=== PATIENT | female | born 1980 | race Caucasian/White ===

== ENCOUNTER 2019-04-09 11:45 | Outpatient (CLI) | payer MEDICAID ==
[2019-04-09 17:19] LABS: BASOPHILS # (AUTO) 0.1 10^3/uL (0.0-0.1); BASOPHILS % (AUTO) 0.6 %; EOSINOPHILS # (AUTO) 0.1 10^3/uL (0.0-0.7); EOSINOPHILS % (AUTO) 1.3 %; HGB - HEMOGLOBIN 14.9 g/dL (12.0-16.0); LYMPHOCYTES # (AUTO) 3.8 10^3/uL (1.5-3.5); LYMPHOCYTES % (AUTO) 34.4 %; MEAN CORPUSCULAR HEMOGLOBIN 27.9 pg (27.0-31.0); MEAN CORPUSCULAR HGB CONC 32.5 g/dL (32.0-36.0); MEAN CORPUSCULAR VOLUME 85.8 fL (81.0-99.0); MEAN PLATELET VOLUME 9.7 fL (7.9-10.8); MONOCYTES # (AUTO) 0.6 10^3/uL (0.0-1.0); MONOCYTES % (AUTO) 5.1 %; NEUTROPHILS # (AUTO) 6.3 10^3/uL (1.5-6.6); PLT - PLATELET COUNT 375 10^3/uL (130-450); RED BLOOD COUNT 5.35 10^6/uL (4.20-5.40); RED CELL DISTRIBUTION WIDTH 13.2 % (12.0-15.0); WHITE BLOOD COUNT 10.9 x10^3/uL (4.8-10.8)
[2019-04-09 18:09] LABS: ALBUMIN 4.6 g/dL (3.2-5.5); ALBUMIN/GLOBULIN RATIO 1.3 (1.0-2.2); ALKALINE PHOSPHATASE 82 IU/L (42-121); ALT ALANINE AMINOTRANSFERASE 26 IU/L (10-60); AST ASPARTATE AMINOTRANSFERASE 19 IU/L (10-42); BILIRUBIN,TOTAL 1.2 mg/dL (0.2-1.0); BUN - BLOOD UREA NITROGEN 10 mg/dL (6-20); CALCIUM 9.8 mg/dL (8.5-10.3); CARBON DIOXIDE - CO2 25 mmol/L (21-32); CHLORIDE 104 mmol/L (101-111); CHOL/HDL RATIO 7.5 (<4.4); CHOLESTEROL 298 mg/dL; CREATININE 0.8 mg/dL (0.4-1.0); GFR - MDRD 79 (>89); GLUCOSE 98 mg/dL (70-100); HDL CHOLESTEROL 40 mg/dL; LDL CHOLESTEROL,CALCULATED 227 mg/dL; LDL/HDL RATIO 5.7 (<4.4); SODIUM 138 mmol/L (135-145); TOTAL PROTEIN 8.1 g/dL (6.7-8.2); VLDL CHOLESTEROL 31 mg/dL
== END 2019-04-09 11:46 | disposition home or self-care (01) ==
LOC: LAB.S 11:45
PROVIDERS: ATTEND Registered Nurse
DX: Z86.69 Personal history of other diseases of the nervous system and sense organs (principal); E66.01 Morbid (severe) obesity due to excess calories; J30.2 Other seasonal allergic rhinitis; F32.9 Major depressive disorder, single episode, unspecified; F41.9 Anxiety disorder, unspecified; G89.29 Other chronic pain
CPT/HCPCS: 36415; 80053; 80061; 83721; 84443; 85025

== ENCOUNTER 2020-04-18 12:21 | Outpatient (CLI) | payer MEDICAID ==
[2020-04-18 16:00] LABS: BASOPHILS # (AUTO) 0.1 10^3/uL (0.0-0.1); BASOPHILS % (AUTO) 0.5 %; EOSINOPHILS # (AUTO) 0.1 10^3/uL (0.0-0.7); EOSINOPHILS % (AUTO) 0.8 %; HGB - HEMOGLOBIN 14.6 g/dL (12.0-16.0); LYMPHOCYTES # (AUTO) 3.6 10^3/uL (1.5-3.5); LYMPHOCYTES % (AUTO) 26.6 %; MEAN CORPUSCULAR HEMOGLOBIN 28.5 pg (27.0-31.0); MEAN CORPUSCULAR VOLUME 86.5 fL (81.0-99.0); MEAN PLATELET VOLUME 9.6 fL (7.9-10.8); MONOCYTES # (AUTO) 0.7 10^3/uL (0.0-1.0); NEUTROPHILS # (AUTO) 9.1 10^3/uL (1.5-6.6); NEUTROPHILS % (AUTO) 66.7 %; PLT - PLATELET COUNT 347 10^3/uL (130-450); RED BLOOD COUNT 5.12 10^6/uL (4.20-5.40); RED CELL DISTRIBUTION WIDTH 13.2 % (12.0-15.0); WHITE BLOOD COUNT 13.6 x10^3/uL (4.8-10.8)
[2020-04-18 16:19] LABS: ALBUMIN 4.4 g/dL (3.2-5.5); ALBUMIN/GLOBULIN RATIO 1.3 (1.0-2.2); ALKALINE PHOSPHATASE 88 IU/L (42-121); ALT ALANINE AMINOTRANSFERASE 13 IU/L (10-60); AST ASPARTATE AMINOTRANSFERASE 11 IU/L (10-42); BILIRUBIN,TOTAL 0.9 mg/dL (0.2-1.0); BUN - BLOOD UREA NITROGEN 11 mg/dL (6-20); CALCIUM 9.8 mg/dL (8.5-10.3); CARBON DIOXIDE - CO2 22 mmol/L (21-32); CHLORIDE 107 mmol/L (101-111); CHOL/HDL RATIO 5.9 (<4.4); CHOLESTEROL 240 mg/dL; CREATININE 0.9 mg/dL (0.4-1.0); GLUCOSE 98 mg/dL (70-100); HDL CHOLESTEROL 41 mg/dL; LDL CHOLESTEROL,CALCULATED 159 mg/dL; LDL/HDL RATIO 3.9 (<4.4); SODIUM 137 mmol/L (135-145); TOTAL PROTEIN 7.7 g/dL (6.7-8.2); VLDL CHOLESTEROL 40 mg/dL
== END 2020-04-18 12:22 | disposition home or self-care (01) ==
LOC: LAB.S 12:21
PROVIDERS: ATTEND Physician Assistant
DX: E78.5 Hyperlipidemia, unspecified (principal); F41.8 Other specified anxiety disorders; I10 Essential (primary) hypertension; F41.9 Anxiety disorder, unspecified; F32.9 Major depressive disorder, single episode, unspecified; Z86.69 Personal history of other diseases of the nervous system and sense organs
CPT/HCPCS: 36415; 80053; 80061; 83721; 84443; 85025

== ENCOUNTER 2020-05-27 15:24 | Outpatient (CLI) | payer MEDICAID ==
[2020-05-27 20:07] LABS: BASOPHILS # (AUTO) 0.1 10^3/uL (0.0-0.1); BASOPHILS % (AUTO) 0.4 %; EOSINOPHILS # (AUTO) 0.1 10^3/uL (0.0-0.7); EOSINOPHILS % (AUTO) 0.6 %; HGB - HEMOGLOBIN 14.2 g/dL (12.0-16.0); LYMPHOCYTES # (AUTO) 2.4 10^3/uL (1.5-3.5); LYMPHOCYTES % (AUTO) 19.8 %; MEAN CORPUSCULAR HEMOGLOBIN 28.7 pg (27.0-31.0); MEAN CORPUSCULAR HGB CONC 32.7 g/dL (32.0-36.0); MEAN CORPUSCULAR VOLUME 87.9 fL (81.0-99.0); MEAN PLATELET VOLUME 9.7 fL (7.9-10.8); MONOCYTES # (AUTO) 0.4 10^3/uL (0.0-1.0); MONOCYTES % (AUTO) 3.4 %; NEUTROPHILS % (AUTO) 75.4 %; PLT - PLATELET COUNT 354 10^3/uL (130-450); RED BLOOD COUNT 4.94 10^6/uL (4.20-5.40); RED CELL DISTRIBUTION WIDTH 13.2 % (12.0-15.0)
[2020-05-27 20:35] LABS: RHEUMATOID FACTOR NEGATIVE (Negative)
[2020-05-31 11:51] LABS: ANA SCREEN NEGATIVE (NEGATIVE); DNA (DS) ANTIBODY <1 IU/mL
[2020-05-31 19:47] LABS: CYCLIC CITRULL PEPTIDE CCP IGG <16 UNITS
== END 2020-05-27 15:25 | disposition home or self-care (01) ==
LOC: LAB.S 15:24
PROVIDERS: ATTEND Physician Assistant
DX: R79.9 Abnormal finding of blood chemistry, unspecified (principal); M25.50 Pain in unspecified joint; E66.01 Morbid (severe) obesity due to excess calories; G89.29 Other chronic pain
CPT/HCPCS: 36415; 85025; 85651; 86038; 86140; 86200; 86225; 86430

== ENCOUNTER 2020-06-02 12:48 | Outpatient (CLI) | payer MEDICAID ==
--- NOTE | 2020-06-02 16:14 | XRAY Report ---
PROCEDURE: Spine Entire AP/LAT INDICATIONS: BACK PAIN/NECK PAIN TECHNIQUE: 2 view(s) of the cervical, thoracic and lumbar acquired. COMPARISON: None FINDINGS: Bones: No fractures or dislocations. No suspicious bony lesions. There is overall straightening of normal cervical curvature. 12 pairs of ribs are noted within the thoracic spine. There is moderate t o severe disc space narrowing at L4-5, as well as moderate L5-S1. Small nonbridging anterior osteophy rene are noted L4 and L5. Pars defect is noted at L5. No visualized anterior or retrolisthesis at L5-S 1. Moderate to severe foraminal narrowing is noted L4-5 and L5-S1. Soft tissues: No suspicious soft tissue calcifications. IMPRESSION: 1. Pars defect at L5. 2. Moderate to severe disc and foraminal narrowing at L4-5, L5-S1. Reviewed by: Ashley Baum MD on 06/02/2020 4:13 PM PST Approved by: Ashley Baum MD on 06/02/2020 4:13 PM PST Station ID: [id number]
== END 2020-06-02 12:49 | disposition home or self-care (01) ==
LOC: DI.S 12:48
PROVIDERS: ATTEND Physician Assistant
DX: M54.2 Cervicalgia (principal); M54.6 Pain in thoracic spine; M48.07 Spinal stenosis, lumbosacral region; M25.50 Pain in unspecified joint; Z90.89 Acquired absence of other organs

== ENCOUNTER 2021-01-12 07:17 | Emergency (ER) | payer MEDICAID ==
[2021-01-12 07:26] VITALS: BP 138/87
--- NOTE | 2021-01-12 07:40 | ED Physician Documentation ---
PD HPI ABD PAIN - Stated complaint Stated Complaint: N/V - Chief complaint Chief Complaint: Abd Pain - History obtained from History obtained from: Patient - Additional information Additional information: 40-year-old woman with history of fibromyalgia, cholecystectomy, appendectomy and hysterectomy presents concern for recurrence of H. pylori. She had H. pylori a few years ago and was treated. Symptoms of gnawing epigastric pain, nausea and diarrhea recurred about a week ago. The pain is nonradiating. It is worse about an hour after eating. Slight relief with antacids. Review of Systems Ten Systems: 10 systems reviewed and negative Constitutional: reports: Reviewed and negative Throat: reports: Reviewed and negative Cardiac: reports: Reviewed and negative Respiratory: reports: Reviewed and negative PD PAST MEDICAL HISTORY - Present Medications Home Medications: Ambulatory Orders Medication Instructions Recorded Confirmed Metoclopramide [Reglan] 10 mg PO Q6H PRN #20 tablet 01/12/21 Omeprazole 40 mg PO BID #28 cap 01/12/21 - Allergies Allergies/Adverse Reactions: Allergies Allergy/AdvReac Type Severity Reaction Status Date / Time gabapentin Allergy Respiratory Verified 01/12/21 07:27 latex Allergy Hives Verified 01/12/21 07:27 pregabalin [From Lyrica] Allergy Hives Verified 01/12/21 07:27 PD ED PE NORMAL - Vitals Vital signs reviewed: Yes - General General: Alert and oriented X 3, No acute distress - HEENT HEENT: PERRL, EOMI - Neck Neck: Supple, no meningeal sign, No bony TTP - Abdomen Abdomen: Normal bowel sounds, Soft, Non tender - Extremities Extremities: No edema, No calf tenderness / cord - Neuro Neuro: Alert and oriented X 3, Normal speech Results - Vitals Vitals: Vital Signs - 24 hr 01/12/21 07:21 Temperature 36.9 C Heart Rate 95 Respiratory 15 Rate Blood Pressure 138/87 H O2 Saturation 100 Oxygen O2 Source Room air - Labs Labs: Laboratory Tests 01/12/21 01/12/21 01/12/21 07:49 07:49 08:35 WBC 13.4 H RBC 5.29 Hgb 15.4 Hct 45.6 MCV 86.2 MCH 29.1 MCHC 33.8 RDW 12.8 Plt Count 364 MPV 9.1 Neut # (Auto) 8.7 H Lymph # (Auto) 3.5 [place] # (Auto) 0.7 Eos # (Auto) 0.4 Baso # (Auto) 0.1 Absolute Nucleated RBC 0.00 Nucleated RBC % 0.0 Sodium 138 Potassium 4.2 Chloride 105 Carbon Dioxide 23 Anion Gap 10.0 BUN 15 Creatinine 1.0 Estimated GFR (MDRD) 61 L Glucose 91 Calcium 9.5 Total Bilirubin 1.4 H AST 14 ALT 18 Alkaline Phosphatase 82 Total Protein 8.6 H Albumin 4.7 Globulin 3.9 Albumin/Globulin Ratio 1.2 Lipase 48 Urine Color Urine Clarity Urine pH Ur Specific [place] Urine Protein Urine Glucose (UA) Urine Ketones Urine Occult Blood Urine Nitrite Urine Bilirubin Urine Urobilinogen Ur Leukocyte Esterase Ur Microscopic Review Urine Culture Comments Stool H. pylori Ag NEGATIVE 01/12/21 08:35 WBC RBC Hgb Hct MCV MCH MCHC RDW Plt Count MPV Neut # (Auto) Lymph # (Auto) [place] # (Auto) Eos # (Auto) Baso # (Auto) Absolute Nucleated RBC Nucleated RBC % Sodium Potassium Chloride Carbon Dioxide Anion Gap BUN Creatinine Estimated GFR (MDRD) Glucose Calcium Total Bilirubin AST ALT Alkaline Phosphatase Total Protein Albumin Globulin Albumin/Globulin Ratio Lipase Urine Color YELLOW Urine Clarity CLEAR Urine pH 5.5 Ur Specific [place] >=1.030 H Urine Protein NEGATIVE Urine Glucose (UA) NEGATIVE Urine Ketones NEGATIVE Urine Occult Blood NEGATIVE Urine Nitrite NEGATIVE Urine Bilirubin NEGATIVE Urine Urobilinogen 0.2 (NORMAL) Ur Leukocyte Esterase NEGATIVE Ur Microscopic Review NOT INDICATED Urine Culture Comments NOT INDICATED Stool H. pylori Ag PD MEDICAL DECISION MAKING - ED course ED course: 40-year-old woman with dyspepsia after starting Victoza. Has a history of H. pylori but labs negative for same here. Benign exam. We will start a PPI and Reglan pending follow-up with PCP. Departure - Departure Disposition: 01 Home, Self Care Clinical Impression: Gastritis Condition: Good Record reviewed to determine appropriate education?: Yes Instructions: ED PUD Vs Gastritis Prescriptions: Omeprazole 40 mg PO BID #28 cap Metoclopramide [Reglan] 10 mg PO Q6H PRN #20 tablet PRN Reason: nausea or headache Comments: Prescriptions sent electronically to [facility]. Call your doctor to arrange a follow-up appointment, make the next available appointment. In the interim, return anytime if worse or if new symptoms d evelop.
[2021-01-12 08:15] LABS: BASOPHILS # (AUTO) 0.1 10^3/uL (0.0-0.1); BASOPHILS % (AUTO) 0.7 %; EOSINOPHILS # (AUTO) 0.4 10^3/uL (0.0-0.7); EOSINOPHILS % (AUTO) 2.9 %; HCT - HEMATOCRIT 45.6 % (37.0-47.0); HGB - HEMOGLOBIN 15.4 g/dL (12.0-16.0); LYMPHOCYTES # (AUTO) 3.5 10^3/uL (1.5-3.5); LYMPHOCYTES % (AUTO) 25.8 %; MEAN CORPUSCULAR HEMOGLOBIN 29.1 pg (27.0-31.0); MEAN CORPUSCULAR HGB CONC 33.8 g/dL (32.0-36.0); MEAN CORPUSCULAR VOLUME 86.2 fL (81.0-99.0); MEAN PLATELET VOLUME 9.1 fL (7.9-10.8); MONOCYTES # (AUTO) 0.7 10^3/uL (0.0-1.0); MONOCYTES % (AUTO) 5.4 %; NEUTROPHILS # (AUTO) 8.7 10^3/uL (1.5-6.6); NEUTROPHILS % (AUTO) 64.8 %; PLT - PLATELET COUNT 364 10^3/uL (130-450); RED BLOOD COUNT 5.29 10^6/uL (4.20-5.40); RED CELL DISTRIBUTION WIDTH 12.8 % (12.0-15.0); WHITE BLOOD COUNT 13.4 x10^3/uL (4.8-10.8)
[2021-01-12 08:29] LABS: ALBUMIN 4.7 g/dL (3.2-5.5); ALBUMIN/GLOBULIN RATIO 1.2 (1.0-2.2); BILIRUBIN,TOTAL 1.4 mg/dL (0.2-1.0); CALCIUM 9.5 mg/dL (8.5-10.3); POTASSIUM 4.2 mmol/L (3.5-5.0); TOTAL PROTEIN 8.6 g/dL (6.7-8.2)
[2021-01-12 08:54] LABS: BILIRUBIN,URINE NEGATIVE (NEGATIVE); GLUCOSE, URINE (UA) NEGATIVE (NEGATIVE); KETONES,URINE (UA) NEGATIVE (NEGATIVE); LEUKOCYTE ESTERASE, URINE NEGATIVE (NEGATIVE); NITRITE,URINE NEGATIVE (NEGATIVE); OCCULT BLOOD,URINE NEGATIVE (NEGATIVE); PH,URINE 5.5 PH (5.0-7.5); PROTEIN,URINE NEGATIVE (NEGATIVE); UROBILINOGEN,URINE 0.2 (NORMAL) E.U./dL (NORMAL)
[2021-01-12 08:58] LABS: CLARITY,URINE CLEAR (CLEAR)
[2021-01-12 09:04] LABS: H. PYLORIS ANTIGEN STL NEGATIVE (Negative)
== END 2021-01-12 10:01 | disposition home or self-care (01) ==
LOC: ED 07:17
DX: K29.70 Gastritis, unspecified, without bleeding (principal)
CPT/HCPCS: 36415; 80053; 81001; 81003; 83690; 85025; 87086; 87338; 99283; 99284

== ENCOUNTER 2021-07-06 10:04 | Emergency (ER) | payer MEDICAID ==
[2021-07-06 10:11] VITALS: BP 150/102
--- NOTE | 2021-07-06 10:24 | ED Physician Documentation ---
PD HPI WOUND RECHECK - Stated complaint Stated Complaint: ABD STICH REMOVAL - Chief complaint Chief Complaint: Wound - Histroy obtained from History obtained from: Patient - History of Present Illness Location: Abdomen Timing - onset: How many days ago (9) Associated symptoms: No: Fever, Redness, Swelling Recently seen: Surgery (gastric sleeve procedure 9 days ago and has sutures that need removing. Surgery office had told her they could be done at Walk In or ER, and did not need to return there.) Review of Systems Constitutional: denies: Fever, Chills Nose: denies: Rhinorrhea / runny nose, Congestion Throat: denies: Sore throat Cardiac: denies: Chest pain / pressure, Palpitations Respiratory: denies: Dyspnea, Cough GI: denies: Vomiting, Diarrhea Musculoskeletal: denies: Neck pain, Back pain Neurologic: denies: Generalized weakness, Focal weakness, Numbness Psychiatric: denies: Depressed PD PAST MEDICAL HISTORY - Past Medical History Past Medical History: Yes Cardiovascular: None Respiratory: None Neuro: None Endocrine/Autoimmune: None GI: Ulcers HAND RIVETER: None : None HEENT: None Psych: None Musculoskeletal: None Derm: None - Past Surgical History Past Surgical History: No /HAND RIVETER: Hysterectomy - Present Medications Home Medications: Ambulatory Orders Medication Instructions Recorded Confirmed Metoclopramide [Reglan] 10 mg PO Q6H PRN #20 tablet 01/12/21 Omeprazole 40 mg PO BID #28 cap 01/12/21 - Allergies Allergies/Adverse Reactions: Allergies Allergy/AdvReac Type Severity Reaction Status Date / Time Beef Containing Products Allergy Hives Verified 07/06/21 10:11 gabapentin Allergy Respiratory Verified 07/06/21 10:11 latex Allergy Hives Verified 07/06/21 10:11 pregabalin [From Lyrica] Allergy Hives Verified 07/06/21 10:11 - Social History Does the pt smoke?: No Smoking Status: Never smoker Does the pt drink ETOH?: No Does the pt have substance abuse?: No - Immunizations Immunizations are current?: Yes - POLST Patient has POLST: No PD ED PE NORMAL - Vitals Vital signs reviewed: Yes - General General: Alert and oriented X 3, No acute distress, Well developed/nourished - Cardiac Cardiac: RRR, No murmur - Respiratory Respiratory: Clear bilaterally - Abdomen Abdomen: Soft, Non tender, No organomegaly, Other (several scope incision sites with 1-2 sutures each spot. No signs of infection. No tenderness.) Results - Vitals Vitals: Vital Signs - 24 hr 07/06/21 10:09 Temperature 36.2 C L Heart Rate 80 Respiratory 16 Rate Blood Pressure 150/102 H O2 Saturation 97 Oxygen O2 Source Room air Procedures - Suture/staple Removal (location) abdomen Suture/staple removal: # sutures (all sutures removed by nursing staff.), No complications PD MEDICAL DECISION MAKING - ED course Complexity details: considered differential, d/w patient Departure - Departure Disposition: 01 Home, Self Care Clinical Impression: Visit for suture removal Condition: Stable Record reviewed to determine appropriate education?: Yes Comments: Continue general wound care. Okay to use ointments. He do not necessarily need to have bandaging on if the tape is irritating. Discharge Date/Time: 07/06/21 11:30
== END 2021-07-06 11:30 | disposition home or self-care (01) ==
LOC: ED 10:04
DX: Z48.02 Encounter for removal of sutures (principal)
CPT/HCPCS: 99281

== ENCOUNTER 2023-07-02 09:16 | Emergency (ER) | payer MEDICAID, OTHER ==
[2023-07-02 09:33] VITALS: O2SAT 100
[2023-07-02 09:56] LABS: BASOPHILS % (AUTO) 0.4 %; EOSINOPHILS # (AUTO) 0.1 10^3/uL (0.0-0.7); EOSINOPHILS % (AUTO) 0.7 %; HCT - HEMATOCRIT 43.6 % (37.0-47.0); HGB - HEMOGLOBIN 15.2 g/dL (12.0-16.0); LYMPHOCYTES # (AUTO) 2.2 10^3/uL (1.5-3.5); LYMPHOCYTES % (AUTO) 20.7 %; MEAN CORPUSCULAR HEMOGLOBIN 29.6 pg (27.0-31.0); MEAN CORPUSCULAR HGB CONC 34.9 g/dL (32.0-36.0); MEAN CORPUSCULAR VOLUME 84.8 fL (81.0-99.0); MEAN PLATELET VOLUME 8.8 fL (7.9-10.8); MONOCYTES # (AUTO) 0.4 10^3/uL (0.0-1.0); MONOCYTES % (AUTO) 3.7 %; NEUTROPHILS # (AUTO) 7.7 10^3/uL (1.5-6.6); NEUTROPHILS % (AUTO) 74.3 %; PLT - PLATELET COUNT 285 10^3/uL (130-450); RED BLOOD COUNT 5.14 10^6/uL (4.20-5.40); RED CELL DISTRIBUTION WIDTH 12.7 % (12.0-15.0); WHITE BLOOD COUNT 10.4 x10^3/uL (4.8-10.8)
[2023-07-02] MEDS: MECLIZINE 12.5 MG TABLET PO STA (09:56)
[2023-07-02] MEDS: ONDANSETRON 4 MG/2 ML VIAL IVP STA (09:56)
--- NOTE | 2023-07-02 09:56 | ED Physician Documentation ---
History of Present Illness - Stated complaint Stated Complaint: WITHDRAWALS - Chief complaint Chief Complaint: General - History obtained from History obtained from: Patient - Additonal information Additional information: Patient is a 43-year-old female with a history of fibromyalgia and anxiety presenting for evaluation feeling that she may have Seroquel withdrawal. Patient states that she has been on 25 mg of Seroquel as needed to use at night to help with sleep and anxiety. She has been using this regularly recently but stopped approximately 10 days ago as she was worried that she would not wake up to feed some new baby goats that they have at home. Yesterday she started feeling dizzy and unsteady with nausea and diarrhea (Estimates 15 episodes, No blood). She does have a history of vertigo. She reports feeling like the room is spinning. She denies headache. No head injury. Does not take a blood thinner. No cough, chest pain or shortness of air. No abdominal pain.She went to see her therapist this morning who recommended she come to the emergency department for evaluation. She denies drug or alcohol use. Review of Systems Constitutional: denies: Fever Cardiac: denies: Chest pain / pressure Respiratory: denies: Dyspnea GI: reports: Nausea, Diarrhea. denies: Abdominal Pain : denies: Dysuria Neurologic: denies: Syncope, Headache PD PAST MEDICAL HISTORY - Past Medical History Past Medical History: Yes Cardiovascular: Hypertension Respiratory: None Neuro: None Endocrine/Autoimmune: None GI: GERD, Ulcers, Other MALTED MILK MIXER: Ovarian cysts : None HEENT: None Psych: Depression, Anxiety Musculoskeletal: Fibromyalgia Derm: None - Past Surgical History Past Surgical History: Yes General: Cholecystectomy, Appendectomy, Gastric surgery Ortho: Arthroscopic surgery /MALTED MILK MIXER: Hysterectomy - Present Medications Home Medications: Ambulatory Orders Medication Instructions Recorded Confirmed Cyclobenzaprine [Flexeril] 10 mg PO TID PRN 07/02/23 07/02/23 HYDROcod/ACETAM 5/325 [[place] 5/325] 1 tablet PO Q6H PRN 07/02/23 07/02/23 Meclizine HCl [Motion Sickness] 25 mg PO Q6H PRN #20 tablet 07/02/23 Metoprolol Succinate [Toprol Xl] 50 mg PO DAILY 07/02/23 07/02/23 Omeprazole 40 mg PO DAILY PRN 07/02/23 07/02/23 Ondansetron Odt [Zofran] 4 mg TL Q6H PRN #10 tablet 07/02/23 QUEtiapine [SEROquel] 25 mg PO QPM 07/02/23 07/02/23 traMADol [Ultram] 50 mg PO BID 07/02/23 07/02/23 - Allergies Allergies/Adverse Reactions: Allergies Allergy/AdvReac Type Severity Reaction Status Date / Time bee venom protein (honey bee) Allergy Anaphylaxis Verified 07/02/23 09:19 Beef Containing Products Allergy Hives Verified 07/02/23 09:19 gabapentin Allergy Respiratory Verified 07/02/23 09:19 latex Allergy Hives Verified 07/02/23 09:19 pregabalin [From Lyrica] Allergy Hives Verified 07/02/23 09:19 - Social History Does the pt smoke?: No Smoking Status: Never smoker Does the pt drink ETOH?: No Does the pt have substance abuse?: No - Immunizations Immunizations are current?: Yes - POLST Patient has POLST: No PD ED PE NORMAL - General General: Alert and oriented X 3, No acute distress, Well developed/nourished - HEENT HEENT: Atraumatic, PERRL, EOMI, Moist mucous membranes, Pharynx benign, Other (+ [place] to left) - Neck Neck: Supple, no meningeal sign - Cardiac Cardiac: RRR, Strong equal pulses - Respiratory Respiratory: No respiratory distress, Clear bilaterally - Abdomen Abdomen: Normal bowel sounds, Soft, Non tender, Non distended - Derm Derm: Warm and dry - Neuro Neuro: Alert and oriented X 3, biomedical engineer 2-12 intact, No motor deficit, No sensory deficit, Normal speech, Other (Normal [id number] bilaterally; Normal unassisted gait) Results - Vitals Vitals: Vital Signs - 24 hr 07/02/23 07/02/23 09:22 10:47 Temperature 36.3 C L Heart Rate 75 68 Respiratory 16 14 Rate Blood Pressure 149/93 H 146/102 H O2 Saturation 100 100 Oxygen O2 Source Room air - EKG (time done) 1006 EKG releavant findings:: EKG personally interpreted by author of this note. Relevant findings are: Rate: Rate (enter#) (Rate 58, normal sinus rhythm, no STEMI, QTc 457) - Labs Labs: Laboratory Tests 07/02/23 07/02/23 09:05 09:05 WBC 10.4 RBC 5.14 Hgb 15.2 Hct 43.6 MCV 84.8 MCH 29.6 MCHC 34.9 RDW 12.7 Plt Count 285 MPV 8.8 Neut # (Auto) 7.7 H Lymph # (Auto) 2.2 [place] # (Auto) 0.4 Eos # (Auto) 0.1 Baso # (Auto) 0.0 Absolute Nucleated RBC 0.00 Nucleated RBC % 0.0 Sodium 138 Potassium 4.0 Chloride 108 Carbon Dioxide 21 Anion Gap 9.0 BUN 8 Creatinine 0.7 Estimated GFR (MDRD) 90 Glucose 104 Calcium 10.0 Total Bilirubin 1.0 AST 10 ALT 8 L Alkaline Phosphatase 74 Total Protein 7.9 Albumin 4.7 Globulin 3.2 Albumin/Globulin Ratio 1.5 Lipase 27 PD Medical Decision Making - ED course Complexity details: reviewed results, d/w patient ED course: Patient is a 43-year-old female presenting for evaluation of feeling dizziness, unsteadiness with some associated nausea. This is worse with turning her head to the left. She was initially concerned that this could be related to stopping her Seroquel 10 days ago. Her Seroquel dosing however is low at only 25 mg nightly. Therefore I am not certain that this could be symptoms of Seroquel withdrawal as her dose is quite low. However her symptoms do suggest vertigo, specifically BPPV.EKG reviewed demonstrates a normal sinus rhythm. No chest pain to suggest ACS. Normal neuroexam including normal gait and [id number]. No head injury and does not take a blood thinner to warrant neuroimaging. Labs including CBC and chemistries were obtained and reviewed and without significant findings. She is feeling better here with IV fluids, Zofran and meclizine. Discussed the Kvng maneuver with her and she is comfortable with plan for discharge as well as continued treatment of vertigo as well as close follow-up with PCP. Patient is advised on concerning symptoms to return for.No signs of cerebellar dysfunction to suggest issue with posterior circulation as source of her symptoms. Departure - Departure Disposition: 01 Home, Self Care Clinical Impression: BPPV (benign paroxysmal positional vertigo) Condition: Stable Instructions: Vertigo Paroxysmal Positional Prescriptions: Meclizine HCl [Motion Sickness] 25 mg PO Q6H PRN #20 tablet PRN Reason: Dizziness Ondansetron Odt [Zofran] 4 mg TL Q6H PRN #10 tablet PRN Reason: Nausea / Vomiting Comments: Your evaluation today suggest that your symptoms are caused by vertigo.Your labs are reassuring. I did give you medicine to help with the vertigo called meclizine as well as an antinausea medication called Zofran. I believe that the vertigo you are Experiencing is from an issue in the inner ear. A maneuver called the Kvng maneuver can be helpful in your symptoms. I would recommend looking up the Kvng Maneuver on YouTube. I have also sent prescriptions for meclizine and Zofran to the [facility] pharmacy in [place]. Please keep your follow-up appointment with your primary care provider on . Return to the ER with any worsening symptoms. Forms: PCP List Discharge Date/Time: 07/02/23 10:52
[2023-07-02] MEDS: SODIUM CHLORIDE 0.9% 1,000 ML IV STA (09:57)
[2023-07-02 10:12] LABS: ALBUMIN 4.7 g/dL (3.2-5.5); ALBUMIN/GLOBULIN RATIO 1.5 (1.0-2.2); CREATININE 0.7 mg/dL (0.6-1.3); TOTAL PROTEIN 7.9 g/dL (6.4-8.9)
[2023-07-02 10:50] VITALS: BP 146/102
== END 2023-07-02 10:52 | disposition home or self-care (01) ==
LOC: ED 09:16
DX: H81.10 Benign paroxysmal vertigo, unspecified ear (principal); T43.596A Underdosing of other antipsychotics and neuroleptics, initial encounter; Z91.128 Patient's intentional underdosing of medication regimen for other reason; I10 Essential (primary) hypertension; M79.7 Fibromyalgia; F41.9 Anxiety disorder, unspecified; Z87.11 Personal history of peptic ulcer disease; Z79.899 Other long term (current) drug therapy
CPT/HCPCS: 36415; 80053; 83690; 85025; 93005; 96374; 99284; A9270

== ENCOUNTER 2023-09-21 13:33 | Outpatient (CLI) | payer OTHER ==
--- NOTE | 2023-09-23 18:43 | MRI Report ---
PROCEDURE: Shoulder RT WO INDICATIONS: R SHOULDER PAIN TECHNIQUE: Noncontrast oblique coronal T2 fast spin echo with fat saturation, oblique sagittal T1 spin echo and T2 fast spin echo with fat saturation, axial T1 spin echo and T2 fast spin echo with fat saturation t hrough the shoulder. COMPARISON: None. FINDINGS: Image quality: Diagnostic Rotator cuff Bulk: No significant atrophy Teres minor: Intact Supraspinatus: Partial-thickness interstitial and bursal sided tears. There is also a partial-thickne ss articular sided tear in the proximal tendon. Moderate tendinosis. Infraspinatus: Mild to moderate tendinosis and partial-thickness interstitial tears Subscapularis: Mild to moderate tendinosis. Bones and bursae GH joint: Mild glenohumeral arthrosis. No subchondral edema. AC joint: Mild to moderate degenerative changes Humeral head: No acute fracture Scapula and acromion: No acute fracture Bursa: Mild bursitis Capsule Labrum: Not well evaluated on this nonarthrographic study. There may be a tiny superior labral tear v ersus degenerative signal abnormality. Long head biceps tendon: Mild to moderate intra-articular tendinosis. IGHL: Intact Rotator interval: Mildly effaced fat signal. Soft tissues: No axillary adenopathy. Lungs are not well seen. IMPRESSION: Partial thickness tears and tendinosis of the rotator cuff as described above. No full-thickness defe ct or high-grade atrophy. Mild glenohumeral and mild to moderate acromial clavicular degenerative changes. Mild adjacent subacr omial/subdeltoid bursitis. Possible superior labral tear versus degenerative signal abnormality. There is adjacent tendinosis of long head biceps tendon. Mildly effaced rotator interval fat signal can sometimes be seen with capsulitis. Reviewed by: Waylon Julian MD on 09/23/2023 6:42 PM PDT Approved by: Waylon Julian MD on 09/23/2023 6:42 PM PDT Station ID: [id number]
== END 2023-09-21 13:34 | disposition home or self-care (01) ==
LOC: DI 13:33
PROVIDERS: ATTEND Nurse Practitioner Family
DX: M75.111 Incomplete rotator cuff tear or rupture of right shoulder, not specified as traumatic (principal); M19.011 Primary osteoarthritis, right shoulder; M67.921 Unspecified disorder of synovium and tendon, right upper arm

== ENCOUNTER 2023-10-08 12:52 | Outpatient (CLI) | payer OTHER ==
--- NOTE | 2023-10-08 13:35 | XRAY Report ---
PROCEDURE: Shoulder 2+V RT INDICATIONS: RIGHT SHOULDER PAIN TECHNIQUE: 3 views of the shoulder were acquired. COMPARISON: None. FINDINGS: Bones: No fractures or dislocations. No suspicious bony lesions. Visualized ribs appear intact. Soft tissues: No suspicious soft tissue calcifications. The visualized lungs are within normal limi ts. IMPRESSION: No acute fracture. No osseous lesion. If symptoms and/or clinical suspicion for pathology continue, f urther assessment with repeat plain films, or advanced imaging (e.g., CT, MRI, or bone scan) is recom mended for further assessment. Reviewed by: Miesha Horowitz MD on 10/08/2023 1:33 PM PDT Approved by: Miesha Horowitz MD on 10/08/2023 1:33 PM PDT Station ID: [id number]
== END 2023-10-08 12:53 | disposition home or self-care (01) ==
LOC: DI 12:52
PROVIDERS: ATTEND Physician Assistant Surgical
DX: M25.511 Pain in right shoulder (principal)

== ENCOUNTER 2023-12-22 13:17 | Outpatient (CLI) | payer OTHER ==
--- NOTE | 2023-12-22 15:14 | Ultrasound Report ---
PROCEDURE: Pelvic Limited INDICATIONS: FALL RIGHT HIP/GLUTEAL, ECCHYMOSIS TECHNIQUE: Real-time transabdominal scanning was performed of the right gluteal region in the area of palpable a bnormality, with image documentation. COMPARISON: None. FINDINGS: Imaging of the area of palpable abnormality in the right luteal region demonstrates edematous tissue which trace fluid. There is no hematoma or abscess identified. IMPRESSION: No hematoma or abscess. Findings consistent with bruising/inflammation. Reviewed by: John Cooper MD on 12/22/2023 3:13 PM PDT Approved by: John Cooper MD on 12/22/2023 3:13 PM PDT Station ID: [id number]
== END 2023-12-22 13:18 | disposition home or self-care (01) ==
LOC: DI 13:17
DX: S79.911A Unspecified injury of right hip, initial encounter (principal)